=== PATIENT | female | born 1960 | race Caucasian/White ===

== ENCOUNTER 2016-09-24 15:03 | Emergency (ER) | payer OTHER ==
[~2016-09-24] VITALS: Ht 162.6 cm; Wt 77.1 kg
[2016-09-24 15:14] VITALS: BP 124/82
--- NOTE | 2016-09-24 15:14 | ED GENERAL ADULT ---
History of Present Illness General Chief Complaint: General Adult Stated Complaint: WEAKNESS, RAN OUT OF PAIN MEDS Source: patient Exam Limitations: no limitations Vital Signs & Intake/Output Vital Signs & Intake/Output Vital Signs Date Time Temp Pulse Resp B/P B/P Pulse O2 O2 Flow FiO2 Mean Ox Delivery Rate 09/24 1556 Room Air Room Air 09/24 1514 98.3 52 16 124/82 99 Room Air Allergies Coded Allergies: latex (UNKNOWN 06/21/15) metronidazole (UNKNOWN 06/21/15) tramadol (UNKNOWN 06/21/15) Reconcile Medications Oxycodone HCl/Acetaminophen (Percocet 5-325 MG Tablet) 5 MG-325 MG TABLET 1 TAB PO TID pain Triage Note: PT HERE FOR PAIN MEDS. PT STATES SHE RAN OUT OF MEDS 2 WEEKS AGO AND CAN'T TAKE THE PAIN. PT DOES SEE DR. SARAVIA FOR HER MS AND STATES HE LOWERED HER DOSE A FEW WEEKS AGO. PT STATES HER GAVE HER OXZY'S 5 TO TAKE BID BUT IT DID NOT HELP. PT STATES SHE JUST GOT HER MEDICAL MARIJUANA CARD AND DID START ON THAT BUT IT DIDN'T HELP EITHER. Triage Nurses Notes Reviewed? yes Onset: Abrupt Duration: day(s): (1-2 weeks), week(s): Timing: recent history Severity: moderate, severe Severity Numbers: 9 No Modifying Factors: none LMP (ages 10-50): post menopausal : No Patient currently breastfeeds: No HPI: 56 year old female with a history of MS presents complaining of pain and cramping in her bilateral lower extremities. Pain is located diffusely in both lower extremities. Patient is currently inbetween pain management centers and ran out of her narcotic pain medication 2 weeks ago. Patient states that normally she takes oxycodone 40 mg twice daily as needed for pain but has not had anything in 2 weeks. She saw her primary care doctor last week has been giving her 5 mg oxycodone to use as needed. Patient reports this helps to alleviate the pain. she does see a neurologist every 3 months. She denies any trauma to the lower extremities, numbness, tingling, swelling, rashes, redness. Pain is located in diffusely both lower extremities and does not radiate. She rates the pain as a 9 out of 10 that is worse with any type of movement or touching the areas. Patient reports that pain today is very similar to previous pain she has had due to her MS. No other associated symptoms. She is currently in process of starting a new pain management center. (JASSI CARMICHAEL PA-C) Past History Travel History Traveled to [place] past 21 day No Medical History Any Pertinent Medical History? see below for history Neurological: multiple sclerosis Surgical History Surgical History: none Psychosocial History What is your primary language Turkmen Tobacco Use: Quit >30 days ago ETOH Use: occasional use Illicit Drug Use: marijuana Family History Hx Contributory? Yes (JASSI CARMICHAEL PA-C) Review of Systems Review of Systems Constitutional: Reports: no symptoms. EENTM: Reports: no symptoms. Respiratory: Reports: no symptoms. Cardiovascular: Reports: no symptoms. GI: Reports: no symptoms. Genitourinary: Reports: no symptoms. Musculoskeletal: Reports: see HPI, joint pain, muscle pain. Skin: Reports: no symptoms. Neurological/Psychological: Reports: no symptoms. Hematologic/Endocrine: Reports: no symptoms. Immunologic/Allergic: Reports: no symptoms. All Other Systems: Reviewed and Negative (JASSI CARMICHAEL PA-C) Physical Exam Physical Exam General Appearance: well developed/nourished, no apparent distress, alert, awake , anxious, mild distress Head: atraumatic, normal appearance Eyes: Bilateral: normal appearance, PERRL, EOMI. Ears, Nose, Throat: normal pharynx, normal ENT inspection, hearing grossly normal Neck: normal inspection, supple, full range of motion Respiratory: normal breath sounds, chest non-tender, no respiratory distress, lungs clear Cardiovascular: regular rate/rhythm Peripheral Pulses: 2+ dorsalis pedis (R), 2+ dorsalis pedis (L) Gastrointestinal: normal bowel sounds, soft, non-tender, no organomegaly Back: normal inspection, normal range of motion, no vertebral tenderness Extremities: normal inspection, normal capillary refill, normal range of motion, no edema, tenderness (bilateral lower extreities ), no ligament instability Neurologic/Psych: no motor/sensory deficits, awake, alert, oriented x 3, normal mood/affect Comments: Full range of motion of the bilateral lower extremities is intact. Patient reports severe pain with palpation of muscles of the upper and lower legs bilaterally. No swelling no bruising no erythema. Neurovascular supply is intact. Patient is able to bear weight with the help of a cane. Core Measures ACS in differential dx? No CVA/TIA Diagnosis: No Severe Sepsis Present: No Septic Shock Present: No (JASSI CARMICHAEL PA-C) Progress Differential Diagnoses I considered the following diagnoses in my evaluation of the patient: MS exacerbation, muscle strain, arthritis, cellulitis, DVT, septic arthritis, gout Plan of Care: Patient reports pain that she is currently having is related to her MS. She has had the same type of pain on multiple occasions in the past. She ran out of her pain medication 2 weeks ago because she is in between pain management centers. No trauma, no swelling no redness. Patient is nontoxic-appearing on exam. She will be given 10 5 mg oxycodone tablets to use as needed for pain. She'll follow-up with pain management and her primary care doctor this week. return to emergency department as needed. Plan was explained to patient and she is in agreement. She is nontoxic-appearing discharge. Initial ED EKG: none (JASSI CARMICHAEL PA-C) Departure Departure Disposition: HOME OR SELF CARE Condition: Stable Clinical Impression Primary Impression: Lower extremity pain, bilateral Referrals: UNKNOWN (PCP/Family) Additional Instructions: Take oxycodone as directed. This may cause drowsiness and constipation take it with a stool softener. Continue all home meds as directed. Make a follow-up appointment with her primary care doctor and neurologist this week. You need to be seen by pain management. Departure Forms: Customer Survey General Discharge Information Prescriptions: Current Visit Scripts Oxycodone HCl/Acetaminophen (Percocet 5-325 MG Tablet) 1 TAB PO TID #10 TAB (JASSI CARMICHAEL PA-C) PA/PULMONARY SPECIALIST Co-Sign Statement Statement: ED Attending supervision documentation- [] I saw and evaluated the patient. I have also reviewed all the pertinent lab results and diagnostic results. I agree with the findings and the plan of care as documented in the PA's/PULMONARY SPECIALIST's documentation. [X] I have reviewed the ED Record and agree with the PA's/PULMONARY SPECIALIST's documentation. [] Additions or exceptions (if any) to the PAs/PULMONARY SPECIALIST's note and plan are summarized below: [] (BRITTANY SALAZAR,MILE) Critical Care Note Critical Care Note Critical Care Time: non-applicable (JASSI CARMICHAEL PA-C)
[2016-09-24] MEDS ORDERED: PERCOCET 5-3251 EACH PO ×2 (15:35→15:37)
== END 2016-09-24 16:28 ==
LOC: ERH 15:03
DX: M79.604 Pain in right leg (principal); M79.605 Pain in left leg